=== PATIENT | female | born 1955 | race Caucasian/White ===

== ENCOUNTER → 2017-07-19 | Outpatient (CLI) | payer BC, OTHER ==
[2017-07-19 09:44] LABS: HEMOGLOBIN A1C 5.3 % (4.5-6.2)
[2017-07-19 09:48] LABS: CHOL/HDL RATIO 4.5 (0.0-5.0)
== END ==
LOC: LAB 08:58
PROVIDERS: ATTEND Internal Medicine
DX: D89.89 Other specified disorders involving the immune mechanism, not elsewhere classified (principal); E03.8 Other specified hypothyroidism; N95.1 Menopausal and female climacteric states; E78.4 Other hyperlipidemia; E55.9 Vitamin D deficiency, unspecified
CPT/HCPCS: 36415; 80061; 82306; 82627; 82670; 83036; 84144; 84270; 84402; 84403

== ENCOUNTER → 2017-12-05 | Outpatient (CLI) | payer BC, OTHER ==
[2017-12-11 06:59] LABS: DEHYDROEPIANDROSTERONE SULFATE 101 ug/dL (13-130)
== END ==
LOC: LAB 09:21
PROVIDERS: ATTEND Nurse Practitioner
DX: D89.89 Other specified disorders involving the immune mechanism, not elsewhere classified (principal); E03.8 Other specified hypothyroidism; N95.1 Menopausal and female climacteric states; E78.4 Other hyperlipidemia
CPT/HCPCS: 36415; 80061; 82627; 82670; 83704; 84144; 84270; 84402; 84403

== ENCOUNTER → 2018-04-08 | Outpatient (CLI) | payer BC, OTHER ==
[2018-04-08 09:58] LABS: FREE T4 (FREE THYROXINE) 0.83 ng/dL (0.76-1.46); TSH (3RD GENERATION) 1.673 uIU/mL (0.358-3.74)
== END ==
LOC: LAB 09:11
PROVIDERS: ATTEND Nurse Practitioner
DX: D89.89 Other specified disorders involving the immune mechanism, not elsewhere classified (principal); E03.8 Other specified hypothyroidism; N95.1 Menopausal and female climacteric states; E78.4 Other hyperlipidemia; E55.9 Vitamin D deficiency, unspecified
CPT/HCPCS: 36415; 82306; 82627; 82670; 84144; 84270; 84402; 84403; 84439; 84443; 84481